=== PATIENT | female | born 1945 | race Caucasian/White ===

== ENCOUNTER 2020-12-03 15:41 | Outpatient (CLI) | payer MEDICARE, BC | END 2020-12-03 23:59 | disposition home or self-care (01) | LOC: CFH 15:41 | PROVIDERS: ATTEND Internal Medicine Cardiovascular Disease | DX: R60.9 Edema, unspecified (principal) ==

== ENCOUNTER 2020-12-14 13:12 | Outpatient (CLI) | payer MEDICARE, BC | END 2020-12-14 23:59 | disposition home or self-care (01) | LOC: CFH 13:12 | PROVIDERS: ATTEND Internal Medicine Cardiovascular Disease | DX: I25.10 Atherosclerotic heart disease of native coronary artery without angina pectoris (principal); I10 Essential (primary) hypertension; R91.8 Other nonspecific abnormal finding of lung field; J98.4 Other disorders of lung | CPT/HCPCS: 75571 ==